=== PATIENT | female | born 1990 | race Two or more races ===

== ENCOUNTER 2016-10-11 09:09 | Inpatient (IN) | payer MEDICAID ==
[2016-10-11 09:34] VITALS: BMI 26.5
[2016-10-11 11:54] LABS: ABSOLUTE NEUTROPHIL COUNT 8.5 K/mm3 (1.8-7.7); BASO % 0.3 % (0.2-1.0); EOS # 0.1 (0.0-0.5); EOS % 0.6 % (0.9-2.9); HEMATOCRIT 34.3 % (37.0-47.0); HEMOGLOBIN 11.5 gm/l (12.0-16.0); IMM NEUT% 0.4 % (0-1); LYMPH # 2.1 (1.0-4.8); LYMPH % 18.2 % (15-45); MEAN CELL VOLUME 83.9 fl (81.0-99.0); MEAN CORPUSCULAR HEMOGLOBIN 28.1 pg (27.0-31.0); MEAN CORPUSCULAR HGB CONC 33.5 g/dl (33.0-37.0); MEAN PLATELET VOLUME 10.3 fl (7.4-10.4); MONO # 0.6 (0.0-0.8); MONO % 5.4 % (4-12); NEUT % 75.1 % (43-75); PLATELET COUNT 157 K/mm3 (130-400)
[2016-10-11 12:09] LABS: CREATININE,RANDOM URINE 33 mg/dL
[2016-10-11 12:14] LABS: ALB/GLOB RATIO 1.1 (>1.0); ALBUMIN 3.5 gm/dL (3.5-5.7); CALCIUM 9.2 mg/dL (8.6-10.3); URIC ACID 5.9 mg/dL (2.3-7.6)
[2016-10-11] MEDS ORDERED: SODIUM CHLORIDE 0.9% FLUSH 10 ML ONE (17:14)
[2016-10-11] MEDS ORDERED: OXYTOCIN IN NS 334 ML IV PRN (18:12)
[2016-10-11] MEDS ORDERED: OXYTOCIN 10 UNITS/ML VIAL ONE (18:18)
[2016-10-11] MEDS ORDERED: LIDOCAINE 1% (PRES FREE) 30 ML VIAL ONE (18:18)
[2016-10-11] MEDS ORDERED: MINERAL OIL 25 ML BOT ONE (18:18)
[2016-10-11] MEDS ORDERED: LIDOCAINE Viscous 2% 15 ML UDCUP ONE (18:19)
[2016-10-11] MEDS ORDERED: PUMP TUBING ONE (18:19)
[2016-10-11] MEDS ORDERED: LACTATED RINGERS 1,000 ML ONE (18:19)
[2016-10-11] MEDS ORDERED: IV START KIT ONE (18:19)
[2016-10-11] MEDS ORDERED: OXYTOCIN IN NS 500 ML IV ONE (18:19)
--- NOTE | 2016-10-11 18:53 | PCMAN ---
OB Admission Note - History : 3 Term: 2 : 0 Abortions (S&E): 0 Livin Gestational Age (weeks): 39 Days (#/7): 1 Heart Rate:: 140 Status:: cat 1 EFW:: 7 lbs Summary of Course:: She has had mild iron deficiency anemia and is on iron, elevated one hour, with normal 3 hour gtt pmh: tension headaches PSH: none ob hx: 05/07 40 weeks, 3.4 kg induced for PIH at term, 04/10 at 39 weeks , 3.2 kg - Labs Blood Type: O (+) positive Hct/Hgb:: 11.0 Rubella Status: Immune GBS Status: Negative Abnormal Labs: None - Physical Exam General: Afebrile Psych/Mental Status: Mood/Affect Appropriate Neurological: Alert HEENT: Atraumatic Lungs: Clear to Auscultation Bilaterally Cardiovascular: Regular Rate and Rhythm Abdomen: Normal Bowel Sounds Genitourinary: Normal Female Genitalia Rectal Exam: Deferred Extremities: Other (ne, no edema) Skin: Normal Color - Problems (1) Elevated blood pressure affecting in third trimester, antepartum Status: Acute Code: O13.3Assessment/Plan: neg labs, plan to induce with Cook Catheter/AROM. placed cook catheter. FWB reassuring, cat 1
[2016-10-11] MEDS ORDERED: OXYTOCIN IN NS 500 ML IV PRN (21:33)
--- NOTE | 2016-10-11 21:33 | PDOC36 ---
Provider Note Subject: feeling more painful UC's Note: vss af FHT's 140 good variability, cat 1 toco: q 3-4 min sve 3/50/-1 arom blood tinged clear fluid removed [employer] catheter A/P: IUP at 39 weeks IOL for elevated BP at term s/p kylie, s/p arom start pitocin FWB reassuring, cat 1 BP is stable no PIH symptoms.
[2016-10-11] MEDS: LACTATED RINGERS 1,000 ML IV SCH (22:08)
[2016-10-12] MEDS: FENTANYL 100 MCG/2 ML VIAL IV PRN ×3 (00:10→02:19)
[2016-10-12] MEDS: LACTATED RINGERS 1,000 ML IV SCH ×3 (02:00→05:35)
[2016-10-12] MEDS ORDERED: EPIDURAL PUMP SET ONE (03:31)
[2016-10-12] MEDS ORDERED: FENTANYL/ROPIVACAINE EPIDURAL 250 ML EP ONE (03:31)
[2016-10-12] MEDS ORDERED: FENTANYL/ROPIVACAINE EPIDURAL 250 ML EP SCH (04:20)
[2016-10-12] MEDS ORDERED: EPIDURAL PROCEDURE TRAY ONE (04:22)
[2016-10-12] MEDS ORDERED: ROPIVACAINE 0.5% 30 ML VIAL ONE (04:22)
[2016-10-12] MEDS ORDERED: EPHEDRINE SULFATE 50 MG/ML 1ML VIAL IV PRN (04:42)
[2016-10-12] MEDS ORDERED: NALBUPHINE HCL 20 MG/ML AMP IV PRN (04:42)
[2016-10-12] MEDS ORDERED: LACTATED RINGERS 500 ML IV PRN (04:42)
[2016-10-12] MEDS ORDERED: METOCLOPRAMIDE HCL 5 MG/ML 2ML VIAL IV PRN (04:42)
[2016-10-12] MEDS ORDERED: NALOXONE HCL 0.4 MG/ML VIAL IV PRN (04:42)
[2016-10-12] MEDS ORDERED: SODIUM CHLORIDE 0.9% 500 ML IV PRN (04:42)
[2016-10-12] MEDS ORDERED: DIPHENHYDRAMINE HCL 50 MG/1 ML VIAL IV PRN (04:42)
[2016-10-12] MEDS ORDERED: ONDANSETRON 4 MG/2ML 2 ML VIAL IV PRN (04:42)
--- NOTE | 2016-10-12 08:21 | PCMDEL ---
Delivery Note - Labor 1st stage (hr/min):: 10 hours 30 min 2nd stage (hr/min):: 9 min 3rd stage (hr/min):: 4 min Total (hr/min):: 11 hours Pushed (hr/min):: 9 min - Delivery Delivery (Date): 10/12/16 Delivery (Time): 07:59 Infant Gender: Male Presentation: Cephalic Position: OA Umbilical Cord: 3 Vessel, Body Cord Delayed Cord Clamping:: 2-3 min 1 Minute Total: 8 5 Minute Total: 9 Placenta:: Marginal cord insertion EBL:: 200 Perineum:: Second degree midline perineal lac repaired in running fashion with 3 -0 vicryl. Comments:: Presented for IOL for h/o elevated blood pressures with normal work up for PIH. Neg Pr/Cr ratio and BPs stable during admission. Some mild elevations to 150's SBP. monitoring cat I throughout. IOL start with sexton bulb. Then AROM performed and transitioned with short course of pitocin. THis was d/c due to tachysystole. Patient progressed on normal labor curve and pushed effectively to deliver via without complications. Vigorous infant. Delayed cord clamping x 2 min. Active third start with pit and fundal massage. Uncomplicated delivery.
[2016-10-12] MEDS ORDERED: HYDROCODONE/ACETAMINOPHEN 5/325MG TABLET PO PRN (08:31)
[2016-10-12] MEDS ORDERED: LANOLIN 50 APPLIC/7G TUBE TP PRN (08:31)
[2016-10-12] MEDS ORDERED: BENZOCAINE/MENTHOL 60 APPLIC/BOT TP PRN (08:31)
[2016-10-12] MEDS ORDERED: DOCUSATE SODIUM 100 MG CAPSULE PO PRN (08:31)
[2016-10-12] MEDS ORDERED: MAGNESIUM HYDROXIDE 30 ML UDCUP PO PRN (08:31)
[2016-10-12] MEDS ORDERED: LACTATED RINGERS 1,000 ML ONE (10:04)
[2016-10-12] MEDS: IBUPROFEN 800 MG TABLET PO PRN ×2 (12:22→23:10)
[2016-10-13 06:20] LABS: HEMATOCRIT 28.3 % (37.0-47.0); HEMOGLOBIN 9.4 gm/l (12.0-16.0)
--- NOTE | 2016-10-13 08:06 | PDOC39B ---
Hospital Course: ADMIT DATE: 10/11/16 DISCHARGE DATE: 10/13/16 ADMISSION DIAGNOSES: IUP at 39 1/7 weeks Elevated blood pressures PROCEDURES: IOL HISTORY OF PRESENT ILLNESS: 26 year old G3 T2 L2 at 39 weeks 2 days presenting for IOL. HOSPITAL COURSE: Presented for IOL for h/o elevated blood pressures with normal work up for PIH. Neg Pr/Cr ratio and BPs stable during admission. Some mild elevations to 150's SBP. monitoring cat I throughout. IOL start with sexton bulb. Then AROM performed and transitioned with short course of pitocin. THis was d/c due to tachysystole. Patient progressed on normal labor curve and pushed effectively to deliver via without complications. her post course was also uncomplicated. By day of discharge the patient is ambulating, eating, voiding, and passing flatus without difficulty. Pain is controlled and lochia is appropriate. She is breast feeding well. Good maternal bonding. - Physical Exam Vital Signs: Temp Pulse Resp BP Pulse Ox 98.1 F 68 16 100/59 10/13/16 07:34 10/13/16 07:34 10/13/16 07:34 10/13/16 07:34 General: Afebrile, No Acute Distress Neurological: Alert, Oriented x 4 Lungs: Clear to Auscultation Bilaterally Cardiovascular: Regular Rate and Rhythm Fundus: Firm, Midline Extremities: Full ROM, No Edema Skin: Normal Color, Warm, Dry, Intact, No Rash - Discharge Diagnosis (1) Elevated blood pressure affecting in third trimester, antepartum Status: AcuteAssessment/Plan: neg labs, BP stable throughout labor course. (2) (normal spontaneous vaginal delivery) Status: Acute - Discharge Plan Condition: Good Disposition: Home Prescriptions: Docusate Sodium [COLACE 100 MG CAPSULE (SHF)] 100 mg PO DAILY PRN #60 PRN Reason: Comfort Ibuprofen [IBUPROFEN 800 MG TABLET (SHF)] 800 mg PO Q6H PRN #60 PRN Reason: Pain (Mild) FERROUS SULFATE (65 Fe) [IRON FERROUS SULFATE 325 MG TABLET (SHF)] 325 mg PO BID #60 tab Lanolin [LANOLIN 7 G TUBE (SHF)] 1 applic TP PRN PRN #10 PRN Reason: Sore Nipples Follow-Up: Sury Kirk MD [Staff Physician] - In 6 weeks
[2016-10-13 14:45] VITALS: BP 137/82
== END 2016-10-13 15:12 | disposition home or self-care (01) | DRG 775 ==
LOC: FBCOUT 09:09 → FBC 09:12 → FBCOUT 16:29 → FBC 16:30
PROVIDERS: ADMIT Family Medicine; ATTEND Family Medicine
PROC: 3E0P7GC Introduction of Other Therapeutic Substance into Female Reproductive, Via Natural or Artificial Opening (ICD-10-PCS; 2016-10-11)
PROC: 10907ZC Drainage of Amniotic Fluid, Therapeutic from Products of Conception, Via Natural or Artificial Opening (ICD-10-PCS; 2016-10-11)
PROC: 10E0XZZ Delivery of Products of Conception, External Approach (ICD-10-PCS; principal; 2016-10-12)
PROC: 0KQM0ZZ Repair Perineum Muscle, Open Approach (ICD-10-PCS; 2016-10-12)
DX: O75.89 Other specified complications of labor and delivery (principal); R03.0 Elevated blood-pressure reading, without diagnosis of hypertension; Z37.0 Single live birth; O70.1 Second degree perineal laceration during delivery; Z3A.39 39 weeks gestation of pregnancy; O99.02 Anemia complicating childbirth; D50.9 Iron deficiency anemia, unspecified